=== PATIENT | male | born 1945 | race African-American/Black ===

== ENCOUNTER 2022-12-30 08:47 | Inpatient (IN) | payer OTHER ==
[2022-12-30 09:42] LABS: Absolute Lymphocytes (CBC) 1.5 K/uL (0.7-4.9); Hematocrit 39.9 % (39.6-49.0); Lymphocytes % 10.5 % (15.3-44.8); MCV 88.4 fL (80-100); MPV 8.1 fL (7.6-11.3); RBC Red Blood Cell Count 4.51 M/uL (4.33-5.43)
[2022-12-30 10:00] LABS: Potassium 3.7 mmol/L (3.5-5.1); Troponin High Sensitivity 9.2 pg/mL (<58.9)
--- NOTE | 2022-12-30 10:07 | RAD REPORT ---
EXAM DESCRIPTION: RAD - Chest Single View - 12/30/2022 9:53 am CLINICAL HISTORY: CHEST PAIN COMPARISON: Portable 10/07/2014 TECHNIQUE: AP portable chest image was obtained 12/30/2022 9:53 am . FINDINGS: No focal mass or consolidations seen. Interstitial pattern is prominent. This is not subst antially different from prior imaging and is believed to be baseline interstitial lung disease. Sever ity of chronic pattern could mask minimal interstitial edema or infiltrate. No significant failure or volume overload. Heart and vasculature are normal. No measurable pleural effusion and no pneumothorax. No acute bony abnormality seen. No acute aortic f indings suspected. IMPRESSION: No focal mass or consolidation. Chronic interstitial lung pattern is present and could potentially mask a mild interstitial edema or infiltrate.
[2022-12-30 10:30] LABS: Protime INR 1.17
[2022-12-30] MEDS ORDERED: NA CHLORIDE 0.9% 1,000 ML ONE (11:08)
[2022-12-30] MEDS ORDERED: NA CHLORIDE 0.9% 250 ML ONE (11:08)
[2022-12-30] MEDS ORDERED: CEFTRIAXONE 1000 MG/VIAL ONE (11:08)
[2022-12-30] MEDS ORDERED: AZITHROMYCIN 500 MG INJ IVPB ONE (11:08)
--- NOTE | 2022-12-30 11:26 | ER ---
Nurse's Notes [facility] Name: Jaison Yousif Age: 77 yrs Sex: Male : 1945 Arrival Date: 12/30/2022 Time: 08:49 Bed 19 Private MD: Diagnosis: Pneumonia, unspecified organism Presentation: 12/30 08:49 Chief complaint: EMS states: toned out to [place] for SOB and CP. Upon arrival to ld1 [place] pt was 72% 2L NC. Upon arrival to ER pt was placed on nasal cannula and 98% on 2L NC . Coronavirus screen: At this time, the client does not indicate any symptoms associated with coronavirus-19. Ebola Screen: No symptoms or risks identified at this time. Initial Sepsis Screen: Does the patient meet any 2 criteria? No. Patient's initial sepsis screen is negative. Does the patient have a suspected source of infection? No. Patient's initial sepsis screen is negative. Risk Assessment: Do you want to hurt yourself or someone else? Patient reports no desire to harm self or others. Onset of symptoms was December 30, 2022. 08:49 Method Of Arrival: EMS: [facility] ld1 08:49 Acuity: LIBIA 3 ld1 Triage Assessment: 08:53 General: Appears in no apparent distress. comfortable, Behavior is calm, cooperative, ld1 appropriate for age. Pain: Complains of pain in chest Pain does not radiate. Pain currently is 7 out of 10 on a pain scale. EENT: No signs and/or symptoms were reported regarding the EENT system. Neuro: Level of Consciousness is awake, alert, obeys commands, Oriented to person, place, time, situation. Cardiovascular: Capillary refill < 3 seconds Patient's skin is warm and dry. Rhythm is sinus rhythm. Respiratory: Reports shortness of breath at rest Airway is patent Respiratory effort is even, unlabored, Onset: The symptoms/episode began/occurred suddenly, the patient has mild shortness of breath. GI: Abdomen is flat, non-distended. : No signs and/or symptoms were reported regarding the genitourinary system. Derm: No signs and/or symptoms reported regarding the dermatologic system. Musculoskeletal: No signs and/or symptoms reported regarding the musculoskeletal system. Historical: - Allergies: 08:53 No Known Allergies; ld1 - PMHx: 08:53 CVA; Hypertensive disorder; Dementia; ld1 - Immunization history:: Adult Immunizations up to date, Client reports receiving the 2nd dose of the Covid vaccine. - Social history:: Smoking status: Patient denies any tobacco usage or history of. Patient/guardian denies using alcohol. Screenin:55 [facility] ED Fall Risk Assessment (Adult) History of falling in the last 3 months, ld1 including since admission No falls in past 3 months (0 pts). Abuse screen: Denies threats or abuse. Denies injuries from another. Nutritional screening: No deficits noted. Tuberculosis screening: No symptoms or risk factors identified. Assessment: 08:55 Reassessment: See triage assessment. Cardiovascular: Capillary refill < 3 seconds ld1 Patient's skin is warm and dry. Rhythm is sinus rhythm. Respiratory: Airway is patent Respiratory effort is even, unlabored, Breath sounds are clear bilaterally. 10:30 Reassessment: Patient appears in no apparent distress at this time. No changes from ld1 previously documented assessment. Patient and/or family updated on plan of care and expected duration. Pain level reassessed. 11:45 Reassessment: Patient appears in no apparent distress at this time. Patient and/or ld1 family updated on plan of care and expected duration. Pain level reassessed. Patient is alert, oriented x 3, equal unlabored respirations, skin warm/dry/pink. Patient denies pain at this time. 12:15 Reassessment: Patient appears in no apparent distress at this time. Patient and/or ld1 family updated on plan of care and expected duration. Pain level reassessed. 13:45 Reassessment: Patient appears in no apparent distress at this time. Patient and/or ld1 family updated on plan of care and expected duration. Pain level reassessed. Patient is alert, oriented x 3, equal unlabored respirations, skin warm/dry/pink. 15:33 Reassessment: Patient appears in no apparent distress at this time. Patient and/or ld1 family updated on plan of care and expected duration. Pain level reassessed. Patient is alert, oriented x 3, equal unlabored respirations, skin warm/dry/pink. Vital Signs: 08:49 BP 121 / 66; Pulse 85; Resp 14; Temp 98.2(O); Pulse Ox 98% on 2 lpm NC; Weight 40.82 ld1 kg; Height 5 ft. 5 in. (165.10 cm); 09:42 BP 104 / 53; Pulse 75; Resp 11; Pulse Ox 99% on R/A; ld1 11:18 BP 104 / 53; Pulse 85; Resp 14; Pulse Ox 97% on R/A; ld1 12:01 BP 104 / 59; Pulse 87; Resp 12; Pulse Ox 98% on R/A; ld1 13:30 BP 109 / 58; Pulse 76; Resp 17; Pulse Ox 98% on R/A; ld1 15:00 BP 117 / 65; Pulse 85; Resp 15; Pulse Ox 99% on R/A; ld1 15:34 BP 115 / 66; Pulse 75; Resp 14; Pulse Ox 99% on R/A; ld1 08:49 Body Mass Index 14.98 (40.82 kg, 165.10 cm) ld1 ED Course: 08:49 Patient arrived in ED. ld1 08:53 Triage completed. ld1 08:53 Arm band placed on right wrist. EKG completed in triage. Results shown to MD. ld1 08:55 Patient has correct armband on for positive identification. Placed in gown. Bed in low ld1 position. Call light in reach. Side rails up X2. basting cleaner on. Pulse ox on. NIBP on. Door closed. Noise minimized. Warm blanket given. 08:55 No provider procedures requiring assistance completed. ld1 08:57 Client placed on continuous cardiac and pulse oximetry monitoring. NIBP monitoring mm9 applied. 08:58 Courtney Farrell FNP is [facility]. jh7 08:58 Martinez Askew MD is Attending Physician. jh7 08:58 EKG done, by ED staff, reviewed by Martinez Askew MD. mm9 09:42 Ella Nunez, JUSTIN is Primary Nurse. ld1 09:55 XRAY Chest (1 view) In Process Unspecified. EDMS 11:06 CT Chest For PE Angio In Process Unspecified. EDMS 11:25 Jaison Payne MD is Hospitalizing Provider. jh7 11:57 Cassidy Buckley MD is Hospitalizing Provider. jh7 11:58 Blood Culture Adult (2) Sent. ld1 15:34 Cleaned of incontinence. Linen changed. ld1 16:26 Patient admitted, IV remains in place. ld1 Administered Medications: 11:51 Drug: Rocephin (cefTRIAXone) 1 grams Route: IV; Rate: 1 calculated rate; Site: left ld1 antecubital; 11:58 Drug: AZITHromycin 500 mg Route: IVPB; Infused Over: 1 hrs; Site: left antecubital; ld1 11:58 Drug: NS 0.9% 1000 ml Route: IV; Rate: 125 ml/hr; Site: left antecubital; ld1 Medication: 08:55 VIS not applicable for this client. ld1 Outcome: 11:25 Decision to Hospitalize by Provider. 7 16:26 Admitted to Med/surg accompanied by tech, via wheelchair, room 415, with chart, Report ld1 called to Rashmi Srinivasan Rn 16:26 Condition: stable 16:26 Instructed on the need for admit. 16:26 Patient left the ED. ld1 Signatures: Dispatcher [employer] Ella Peralta RN RN ld1 Courtney Farrell FNP HYDROGEN OPERATOR [facility] Leonie Boo [facility]
--- NOTE | 2022-12-30 11:26 | EDPHYS ---
Physician Documentation [facility] Name: Jaison Yousif Age: 77 yrs Sex: Male : 1945 Arrival Date: 12/30/2022 Time: 08:49 Bed 19 Private MD: ED Physician Martinez Askew HPI: 12/30 08:50 This 77 yrs old Black Male presents to ER via EMS with complaints of Shortness Of jh7 Breath, Chest Pain. 08:50 The patient has shortness of breath that occurred at a assisted or assisted living [facility] facility. Onset: The symptoms/episode began/occurred this morning. Associated signs and symptoms: Pertinent positives: chest pain, Pertinent negatives: non-productive cough, productive cough, dizziness, fever, loss of consciousness, nausea, visual changes, vomiting. Patient was at the assisted eating breakfast and nursing staff reports that the patient was 74% on 2 L nasal cannula. Staff reports that the patient was complaining of shortness of breath and chest pain but due to a history of dementia and a previous CVA, the patient is only able to answer yes or no questions. Patient 98% oxygen saturation on 2 L nasal cannula in the ER.. Historical: - Allergies: 08:53 No Known Allergies; ld1 - PMHx: 08:53 CVA; Hypertensive disorder; Dementia; ld1 - Immunization history:: Adult Immunizations up to date, Client reports receiving the 2nd dose of the Covid vaccine. - Social history:: Smoking status: Patient denies any tobacco usage or history of. Patient/guardian denies using alcohol. ROS: 08:50 Constitutional: Negative for fever, chills, and weight loss, Eyes: Negative for injury, jh7 pain, redness, and discharge, ENT: Negative for injury, pain, and discharge, Neck: Negative for injury, pain, and swelling, Abdomen/GI: Negative for abdominal pain, nausea, vomiting, diarrhea, and constipation, Back: Negative for injury and pain, Skin: Negative for injury, rash, and discoloration, Neuro: Negative for headache, weakness, numbness, tingling, and seizure. 08:50 Cardiovascular: Positive for chest pain. 08:50 Respiratory: Positive for shortness of breath, Negative for cough, wheezing. 08:50 All other systems are negative. Exam: 08:50 Constitutional: This is a well developed, well nourished patient who is awake, alert, jh7 and in no acute distress. Head/Face: Normocephalic, atraumatic. Eyes: Pupils equal round and reactive to light, extra-ocular motions intact. Lids and lashes normal. Conjunctiva and sclera are non-icteric and not injected. Cornea within normal limits. Periorbital areas with no swelling, redness, or edema. ENT: Nares patent. No nasal discharge, no septal abnormalities noted. Oropharynx with no redness, swelling, or masses, exudates, or evidence of obstruction, uvula midline. Mucous membranes moist. Cardiovascular: Regular rate and rhythm with a normal S1 and S2. No gallops, murmurs, or rubs. Normal PMI, no JVD. No pulse deficits. Respiratory: Lungs have equal breath sounds bilaterally, clear to auscultation and percussion. No rales, rhonchi or wheezes noted. No increased work of breathing, no retractions or nasal flaring. Abdomen/GI: Soft, non-tender, with normal bowel sounds. No distension or tympany. No guarding or rebound. No evidence of tenderness throughout. Back: No spinal tenderness. No costovertebral tenderness. Full range of motion. Skin: Warm, dry with normal turgor. Normal color with no rashes, no lesions, and no evidence of cellulitis. 08:50 ECG was reviewed by the Attending Physician. 08:50 Neuro: Orientation: Only answering yes or no questions secondary to prior CVA. Mental status at baseline., Mentation: no acute changes, per EMS, Memory: no acute changes, Motor: no acute changes, the patient is contracted. Vital Signs: 08:49 BP 121 / 66; Pulse 85; Resp 14; Temp 98.2(O); Pulse Ox 98% on 2 lpm NC; Weight 40.82 ld1 kg; Height 5 ft. 5 in. (165.10 cm); 09:42 BP 104 / 53; Pulse 75; Resp 11; Pulse Ox 99% on R/A; ld1 11:18 BP 104 / 53; Pulse 85; Resp 14; Pulse Ox 97% on R/A; ld1 12:01 BP 104 / 59; Pulse 87; Resp 12; Pulse Ox 98% on R/A; ld1 13:30 BP 109 / 58; Pulse 76; Resp 17; Pulse Ox 98% on R/A; ld1 15:00 BP 117 / 65; Pulse 85; Resp 15; Pulse Ox 99% on R/A; ld1 15:34 BP 115 / 66; Pulse 75; Resp 14; Pulse Ox 99% on R/A; ld1 08:49 Body Mass Index 14.98 (40.82 kg, 165.10 cm) 1 MDM: 08:58 Patient medically screened. [facility] 11:50 Differential diagnosis: Bronchitis CHF exacerbation, Chronic Obstructive Pulmonary 7 Disease Myocardial Infarction pneumonia, pulmonary edema, Pulmonary Embolism. Antibiotic administration: Rocephin and Zithromax given. Data interpreted: laboratory monitor: Interpretation: normal rate, normal rhythm, Pulse oximetry: on 2L(s) per nasal canula, is 98 %. Data reviewed: vital signs, nurses notes, lab test result(s), EKG, radiologic studies, CT scan, plain films. Consideration of Admission/Observation Patient was admitted/placed on observation. Management of patient was discussed with the following: Hospitalist: Dr. Nesbitt and Dr. Buckley. I considered the following discharge prescriptions or medication management in the emergency department Medications were administered in the Emergency Department. See MAR. Independent interpretation of the following test(s) in the Emergency Department EKG: See my EKG interpretation above. Historians other than the Patient: EMS: . Daughter/Son: daughter. Care significantly affected by the following chronic conditions: dementia, CVA. Counseling: I had a detailed discussion with the patient and/or guardian regarding: the historical points, exam findings, and any diagnostic results supporting the discharge/admit diagnosis, the need for further work-up and treatment in the hospital. 12/30 08:56 Order name: Basic Metabolic Panel; Complete Time: 10:01 12/30 08:56 Order name: CBC with Diff; Complete Time: 09:51 [facility] 12/30 08:56 Order name: Troponin HS; Complete Time: 10:01 12/30 10:03 Order name: PT-INR; Complete Time: 10:34 [facility] 12/30 10:03 Order name: PROBNP; Complete Time: 10:46 [facility] 12/30 10:09 Order name: Lactate w/ 2H reflex if indic.; Complete Time: 10:53 [facility] 12/30 10:55 Order name: Blood Culture Adult (2) 7 12/30 10:57 Order name: SARS RAPID; Complete Time: 11:44 7 12/30 15:05 Order name: CBC with Automated Diff EDMS 12/30 15:05 Order name: CBC with Automated Diff EDMS 12/30 15:05 Order name: Comprehensive Metabolic Panel EDMS 12/30 15:05 Order name: Comprehensive Metabolic Panel EDMS 12/30 15:05 Order name: Lactate w/ 2H reflex if indic. EDMS 12/30 15:05 Order name: Lactate w/ 2H reflex if indic. EDMS 12/30 08:56 Order name: XRAY Chest (1 view); Complete Time: 10:08 ld1 12/30 08:56 Order name: EKG; Complete Time: 08:57 1 12/30 10:09 Order name: CT Chest For PE Angio; Complete Time: 11:40 [facility] 12/30 15:05 Order name: Heart Healthy EDMS 12/30 15:05 Order name: Lipid Profile EDMS 12/30 15:05 Order name: Lipid Profile EDMS 12/30 15:05 Order name: Magnesium EDMS 12/30 15:05 Order name: Magnesium EDMS 12/30 15:05 Order name: NT PRO-BNP EDMS 12/30 15:05 Order name: NT PRO-BNP EDMS 12/30 15:05 Order name: Procalcitonin EDMS 12/30 15:05 Order name: Procalcitonin EDMS 12/30 15:26 Order name: Lactate Sepsis 2 HR Follow-up; Complete Time: 16:46 EDMS 12/30 08:56 Order name: Cardiac monitoring; Complete Time: 08:56 1 12/30 08:56 Order name: EKG - Nurse/Tech; Complete Time: 08:56 ld1 12/30 08:56 Order name: IV Saline Lock; Complete Time: 09:33 ld1 12/30 08:56 Order name: Labs collected and sent; Complete Time: 09:33 ld1 12/30 08:56 Order name: O2 Per Protocol; Complete Time: 08:56 ld1 12/30 08:56 Order name: O2 Sat Monitoring; Complete Time: 08:56 ld1 EC:50 Rate is 79 beats/min. Rhythm is regular. Left axis deviation noted. FL interval is jh7 normal at 180 msec. QRS interval is normal at 92 msec. QT interval is normal at 390 msec. No Q waves. T waves are Normal. No ST changes noted. Clinical impression: Normal ECG and Normal sinus rhythm with left axis deviation. Administered Medications: 11:51 Drug: Rocephin (cefTRIAXone) 1 grams Route: IV; Rate: 1 calculated rate; Site: left ld1 antecubital; 11:58 Drug: AZITHromycin 500 mg Route: IVPB; Infused Over: 1 hrs; Site: left antecubital; ld1 11:58 Drug: NS 0.9% 1000 ml Route: IV; Rate: 125 ml/hr; Site: left antecubital; ld1 Disposition: 17:17 Co-signature as Attending Physician, Martinez Askew MD I agree with the assessment and kdr plan of care. Disposition Summary: 12/30/22 11:25 Hospitalization Ordered Hospitalization Status: Inpatient Admission [facility] Location: Telemetry/MedSurg (Inpatient) [facility] Condition: Stable [facility] Problem: new [facility] Symptoms: are unchanged [facility] Bed/Room Type: Standard [facility] Provider: Cassidy Buckley(12/30/22 11:57) [facility] Room Assignment: [facility](12/30/22 15:39) kj Diagnosis - Pneumonia, unspecified organism [facility] Forms: - Medication Reconciliation Form [facility] - SBAR form [facility] Signatures: Dispatcher [employer] EDMartinez Bryan MD MD [facility] Bisi Brown kj1 Ella Nunez, JUSTIN RN ld1 Courtney Farrell, COMPLIANCE TECHNICIAN COMPLIANCE TECHNICIAN [facility] Corrections: (The following items were deleted from the chart) 11:57 11:25 Jaison Payne [place] [id number] 15:39 11:25 [facility] kj1
--- NOTE | 2022-12-30 11:31 | RAD REPORT ---
EXAM DESCRIPTION: CT - Chest For Pe Angio - 12/30/2022 11:04 am CLINICAL HISTORY: r/o PE , chest pain, shortness of breath COMPARISON: Chest Single View dated 12/30/2022 TECHNIQUE: Dynamically enhanced 3 mm thick images of the chest were obtained during administration o f approximately 150mL Isovue 370 IV contrast. Coronal and oblique MIP reconstruction images were gene rated and reviewed. Exam utilizes a protocol to evaluate the pulmonary arterial tree. Patient was susana ged in a left lateral decubitus position due to contraction. All CT scans are performed using dose optimization technique as appropriate and may include automated exposure control or mA/KV adjustment according to patient size. FINDINGS: No pulmonary emboli are identified. The aorta as imaged shows no acute or suspicious finding. No pericardial thickening or effusion. Numerous bullae and blebs scattered in the lung parenchyma many of which are subpleural in location. Interstitial scarring changes are present. Patchy areas of ground-glass opacification are present in the left lung base involving left lower lobe and lingula. No dense airspace consolidation. An 8 es meter juxtapleural nodule is present at the right base. Mild bronchial wall thickening changes are pr esent involving both lung ken. No mediastinal or hilar suspicious masses. No chest wall masses or abnormal axillary lymphadenopathy. Esophagus is dilated. There is liquid or liquid gastric content in the distal esophagus. A minimal hi atal hernia is also present. IMPRESSION: No pulmonary emboli identified. Pleural and parenchymal scarring changes are present as detailed. Patient has superimposed bronchial wall thickening and some patchy airspace opacities in the lower left lung field that could be part of superimposed infiltrate. Mildly dilated esophagus with small hiatal hernia. Mass lesion is not identified at the GE junction.F luid within the esophageal lumen could be ingested fluid or refluxed gastric content.
[2022-12-30 11:42] LABS: SARS-CoV-2 Antigen Rapid Res Negative (Negative)
[2022-12-30] MEDS ORDERED: ACETAMINOPHEN 500 MG TAB PO PRN (14:55)
[2022-12-30] MEDS ORDERED: ONDANSETRON 4 MG/2 ML VIAL IV PRN (14:55)
[2022-12-30] MEDS ORDERED: NA CHLORIDE 0.9% 1,000 ML IV SCH (15:00)
[2022-12-30] MEDS: Levofloxacin 750mg IV 750 MG/150 ML BAG IV SCH (17:10)
[2022-12-30 17:45] LABS: Urine Blood Negative (Negative); Urine Glucose 3+ (Negative); Urine Protein Negative (Negative)
--- NOTE | 2022-12-30 18:39 | P.HP ---
Certification for Inpatient Patient admitted to: Observation With expected LOS: <2 Midnights Patient will require the following post-hospital care: None Practitioner: I am a practitioner with admitting privileges, knowledge of patient current condition, hospital course, and medical plan of care. Services: Services provided to patient in accordance with Admission requirements found in Title 42 Section 412.3 of the Code of Federal Regulations Patient History Date of Service: 12/30/22 Reason for admission: Respiratory distress History of Present Illness: Patient is a 77-year-old gentleman who came to the hospital from [facility] with shortness of breath. Patient was with cough and congestion. Patient was short of breath and patient was hypoxic satting 70% on room air. Patient was sent to the emergency room for further evaluation. Patient was started on nonrebreather in the emergency room. They are able to wean patient down to room air and current saturations are 97%. Patient will be admitted for observation. Patient has been losing some weight. We will continue with pured diet. Patient does not need to eat anything unless it is pured and unless he has his dentures in place. Allergies No Known Allergies Allergy (Unverified 04/19/12 16:34) Home Medications: Aspirin [Aspirin EC 81 MG] 1 tab PO DAILY 04/20/12 Clopidogrel Bisulfate [Plavix] 1 tab PO DAILY 04/20/12 Omeprazole Magnesium [Prilosec Otc] 20 mg PO DAILY 04/20/12 Atorvastatin Calcium 80 mg PO DAILY 04/30/12 Lisinopril/Hydrochlorothiazide [Lisinopril-Hctz 20-12.5 mg Tab] 1 each PO DAILY 04/30/12 Pantoprazole [Protonix Tab*] 40 mg PO DAILYAC #0 tab 05/02/12 - Past Medical/Surgical History Has patient received pneumonia vaccine in the past: Yes Diabetic: No -: History of CVA Past Surgical History: Unable to obtain - Family History Father Family History: Reviewed- Non-Contributory - Social History Smoking Status: Former smoker Alcohol use: No CD- Drugs: No Caffeine use: No Place of Residence: [facility] Review of Systems 10-point ROS is otherwise unremarkable Physical Examination - Vital Signs Temperature: 97.5 F Blood Pressure: 119/59 Pulse: 71 Respirations: 14 Pulse Ox (%): 98 - Physical Exam General: Alert, In no apparent distress, Demented HEENT: Atraumatic, PERRLA, Mucous membr. moist/pink, EOMI, Sclerae nonicteric Neck: Supple, 2+ carotid pulse no bruit, No LAD, Without JVD or thyroid abnormality Respiratory: Diminished, Expiratory wheezes Cardiovascular: Regular rate/rhythm, Normal S1 S2, No murmurs Gastrointestinal: Normal bowel sounds, Soft and benign, Non-distended, No tenderness Musculoskeletal: No clubbing, No swelling, No tenderness Integumentary: No rashes Neurological: Normal gait, Normal speech, Normal strength at 5/5 x4 extr, Normal tone, Sensation intact, Cranial nerves 3-12 intact, Normal affect Lymphatics: No axilla or inguinal lymphadenopathy - Studies Laboratory Data (last 24 hrs) 12/30/22 10:14: PT 12.9 H, INR 1.17 12/30/22 09:31: WBC 14.40 H, Hgb 13.3 L, Hct 39.9, Plt Count 246 12/30/22 09:31: Sodium 132 L, Potassium 3.7, BUN 9, Creatinine 0.57 L, Glucose 136 H Assessment & Plan - Problems (Diagnosis) (1) Hypoxemia Current Visit: Yes Status: Acute (2) Generalized weakness Current Visit: Yes Status: Acute (3) Weight loss Current Visit: Yes Status: Acute (4) History of CVA (cerebrovascular accident) Current Visit: Yes Status: Acute (5) Hypertension Current Visit: Yes Status: Acute - Plan Plan: 1. O2 per protocol 2. Nebs as needed 3. Monitor swallowing 4. Check procalcitonin level for pneumonia-bacterial 5. Physical therapy evaluation 6. Out of bed and ambulate 7. GI and DVT prophylaxis Discharge Plan: Home Plan to discharge in: Greater than 2 days - Advance Directives Does patient have a Living Will: No Does patient have a Durable POA for Healthcare: Yes - Code Status/Comfort Care Code Status Assessed: Yes Code Status: Full Code Critical Care: No Time Spent Managing PTS Care (In Minutes): 45
[2022-12-30] MEDS ORDERED: HALOPERIDOL LACT 5 MG/ML INJ IV PRN (19:00)
[2022-12-30] MEDS: IPRATROPIUM BROM 0.5MG/2.5ML NEB SCH (20:00)
[2022-12-30] MEDS: ALBUTEROL 2.5 MG/3 ML NEB SOL NEB SCH (20:00)
[2022-12-31] MEDS: IPRATROPIUM BROM 0.5MG/2.5ML NEB SCH ×5 (02:05→20:00)
[2022-12-31] MEDS: ALBUTEROL 2.5 MG/3 ML NEB SOL NEB SCH ×5 (02:05→20:00)
[2022-12-31 03:56] LABS: Absolute Lymphocytes (CBC) 2.2 K/uL (0.7-4.9); Hematocrit 33.1 % (39.6-49.0); Lymphocytes % 25.6 % (15.3-44.8); MCV 87.5 fL (80-100); MPV 8.3 fL (7.6-11.3); RBC Red Blood Cell Count 3.78 M/uL (4.33-5.43)
[2022-12-31 04:19] LABS: AST/SGOT 11 U/L (15-37); Albumin 2.9 g/dL (3.4-5.0); Alkaline Phosphatase 70 U/L (45-117); BUN Blood Urea Nitrogen 7 mg/dL (7-18); Bicarbonate 28 mmol/L (21-32); Bilirubin Total 0.8 mg/dL (0.2-1.0); Glomerular Filtration Rate 112 ml/min (=/>90); Glucose Level 94 mg/dL (74-106); HDL Cholesterol 31 mg/dL (40-60); LDL Cholesterol, Calculated 90 mg/dL (<130); NT PRO-BNP 17 pg/mL (<450); Phosphorus 3.5 mg/dL (2.5-4.9); Potassium 3.5 mmol/L (3.5-5.1); Protein, Total 6.5 g/dL (6.4-8.2); Sodium Level 134 mmol/L (136-145)
[2022-12-31 04:37] LABS: ALT/SGPT < 10 U/L (16-61)
[2022-12-31] MEDS: PANTOPRAZOLE 40MG TABLET PO SCH ×2 (06:03→06:09)
[2022-12-31] MEDS: CLOPIDOGREL 75 MG TABLET PO SCH ×2 (09:00→09:58)
[2022-12-31] MEDS: ASPIRIN EC 81 MG TAB PO SCH ×2 (09:00→09:58)
[2022-12-31] MEDS: ENOXAPARIN 30 MG/0.3 ML SQ SCH ×2 (09:00→09:58)
[2022-12-31] MEDS ORDERED: POTASSIUM CL SA 10 MEQ TAB PO ONE (09:00)
[2022-12-31] MEDS: ATORVASTATIN 80 MG TAB PO SCH ×2 (09:00→09:58)
[2022-12-31] MEDS: Levofloxacin 750mg IV 750 MG/150 ML BAG IV SCH (15:45)
--- NOTE | 2022-12-31 16:09 | P.DS ---
Discharge Date: 12/31/22 Disposition: ROUTINE DISCHARGE Discharge Condition: GOOD Reason for Admission: Respiratory distress - Problems (1) Hypoxemia Current Visit: Yes Status: Acute (2) Generalized weakness Current Visit: Yes Status: Acute (3) Weight loss Current Visit: Yes Status: Acute (4) History of CVA (cerebrovascular accident) Current Visit: Yes Status: Acute (5) Hypertension Current Visit: Yes Status: Acute Brief History of Present Illness: Patient is a 77-year-old gentleman who came to the hospital from [facility] with shortness of breath. Patient was with cough and congestion. Patient was short of breath and patient was hypoxic satting 70% on room air. Patient was sent to the emergency room for further evaluation. Patient was started on nonrebreather in the emergency room. They are able to wean patient down to room air and current saturations are 97%. Patient will be admitted for observation. Patient has been losing some weight. We will continue with pured diet. Patient does not need to eat anything unless it is pured and unless he has his dentures in place. Hospital Course: Continue with current plan of care. Patient tolerating diet. Anticipate discharge with outpatient follow-up. Recommend pured diet at discharge. Vital Signs/Physical Exam: Temp Pulse Resp BP Pulse Ox 97.5 F 71 14 119/59 L 98 12/31/22 16:05 12/31/22 16:05 12/31/22 16:05 12/31/22 16:05 12/31/22 16:05 General: Alert, In no apparent distress, Oriented x3 Laboratory Data at Discharge: WBC 8.50 K/uL (4.3-10.9) 12/31/22 03:42 Hgb 11.3 g/dL (13.6-17.9) L D 12/31/22 03:42 Hct 33.1 % (39.6-49.0) L 12/31/22 03:42 Plt Count 213 K/uL (152-406) 12/31/22 03:42 PT 12.9 SECONDS (9.5-12.5) H 12/30/22 10:14 INR 1.17 12/30/22 10:14 Sodium 134 mmol/L (136-145) L 12/31/22 03:42 Potassium 3.5 mmol/L (3.5-5.1) 12/31/22 03:42 BUN 7 mg/dL (7-18) 12/31/22 03:42 Creatinine 0.40 mg/dL (0.70-1.30) L 12/31/22 03:42 Glucose 94 mg/dL (74-106) 12/31/22 03:42 Phosphorus Cancelled 12/31/22 05:00 Magnesium 2.0 mg/dL (1.6-2.4) 12/31/22 03:42 Total Bilirubin 0.8 mg/dL (0.2-1.0) 12/31/22 03:42 AST 11 U/L (15-37) L 12/31/22 03:42 ALT < 10 U/L (16-61) L 12/31/22 03:42 Alkaline Phosphatase 70 U/L (45-117) 12/31/22 03:42 Triglycerides 48 mg/dL (<150) 12/31/22 03:42 Cholesterol 131 mg/dL (<200) 12/31/22 03:42 HDL Cholesterol 31 mg/dL (40-60) L 12/31/22 03:42 Cholesterol/HDL Ratio 4.23 12/31/22 03:42 Home Medications: Aspirin [Aspirin EC 81 MG] 1 tab PO DAILY 04/20/12 Clopidogrel Bisulfate [Plavix] 1 tab PO DAILY 04/20/12 Omeprazole Magnesium [Prilosec Otc] 20 mg PO DAILY 04/20/12 Atorvastatin Calcium 80 mg PO DAILY 04/30/12 Lisinopril/Hydrochlorothiazide [Lisinopril-Hctz 20-12.5 mg Tab] 1 each PO DAILY 04/30/12 Pantoprazole [Protonix Tab*] 40 mg PO DAILYAC #0 tab 05/02/12 levoFLOXacin [Levaquin] 500 mg PO DAILY #7 tab 12/31/22 predniSONE [Deltasone] 20 mg PO BID #11 tab 12/31/22 New Medications: levoFLOXacin [Levaquin] 500 mg PO DAILY #7 tab predniSONE [Deltasone] 20 mg PO BID #11 tab Physician Discharge Instructions: -DC IV and DC home -Follow-up with PCP in 1 to 2 weeks -Follow-up with pulmonary in 1 to 2 weeks -Please call Dr. Buckley at [phone] if any questions regarding hospital stay -Please call nursing station at [phone] if any nursing or medication questions -Return to the emergency room if symptoms worsen Recommend pured diet unless patient has his dentures available. Would feed with assistance and get speech therapy to evaluate the patient and assist with strengthening his swallowing muscles. We will also encourage Ensure high- protein with his meals Diet: AHA Activity: Fall precautions Followup: NONE,NONE [Primary Care Provider] - Time spent managing pt's care (in minutes): 35
[2022-12-31 19:36] VITALS: BMI 14.8
[2023-01-01] MEDS: ALBUTEROL 2.5 MG/3 ML NEB SOL NEB SCH ×2 (02:10→08:31)
[2023-01-01] MEDS: IPRATROPIUM BROM 0.5MG/2.5ML NEB SCH ×2 (02:10→08:31)
--- NOTE | 2023-01-01 02:56 | P.PN ---
Subjective Date of Service: 12/31/22 Subjective: No new changes, No C/O voiced, Improving Review of Systems 10-point ROS is otherwise unremarkable Physical Examination - Vital Signs Temperature: 98.8 F Blood Pressure: 134/63 Pulse: 93 Respirations: 18 Pulse Ox (%): 96 - Physical Exam General: Alert, In no apparent distress HEENT: Atraumatic, PERRLA, EOMI Neck: Supple, JVD not distended Respiratory: Clear to auscultation bilaterally, Normal air movement Cardiovascular: Regular rate/rhythm, Normal S1 S2 Gastrointestinal: Normal bowel sounds, No tenderness Musculoskeletal: No tenderness Integumentary: No rashes Neurological: Normal speech, Normal tone, Normal affect Lymphatics: No axilla or inguinal lymphadenopathy - Studies Medications List Reviewed: Yes Assessment & Plan - Problems (Diagnosis) (1) Hypoxemia Current Visit: Yes Status: Acute (2) Generalized weakness Current Visit: Yes Status: Acute (3) Weight loss Current Visit: Yes Status: Acute (4) History of CVA (cerebrovascular accident) Current Visit: Yes Status: Acute (5) Hypertension Current Visit: Yes Status: Acute - Plan Plan: 1. O2 per protocol 2. Nebs as needed 3. Monitor swallowing 4. Check procalcitonin level for pneumonia-bacterial 5. Physical therapy evaluation 6. Out of bed and ambulate 7. GI and DVT prophylaxis - Advance Directives Does patient have a Living Will: No Does patient have a Durable POA for Healthcare: Yes - Code Status/Comfort Care Code Status: Full Code
[2023-01-01] MEDS: PANTOPRAZOLE 40MG TABLET PO SCH (05:46)
[2023-01-01 06:13] LABS: Potassium 3.4 mmol/L (3.5-5.1)
[2023-01-01] MEDS ORDERED: POTASSIUM CL SA 10 MEQ TAB PO ONE (08:00)
[2023-01-01] MEDS: ENOXAPARIN 30 MG/0.3 ML SQ SCH (09:00)
[2023-01-01] MEDS: ASPIRIN EC 81 MG TAB PO SCH (09:01)
[2023-01-01] MEDS: CLOPIDOGREL 75 MG TABLET PO SCH (09:01)
[2023-01-01] MEDS: ATORVASTATIN 80 MG TAB PO SCH (09:01)
[2023-01-01 09:30] VITALS: O2SAT 100
--- NOTE | 2023-01-08 17:40 | EKG ---
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
[2023-01-24 23:04] VITALS: BP 134/63; TEMP 98.8
== END 2023-01-01 10:55 | DRG 194 ==
LOC: ER 08:47 → ERHOLD 14:59 → 4TH 16:13
PROVIDERS: ADMIT Hospitalist; ATTEND Hospitalist
DX: J15.9 Unspecified bacterial pneumonia (principal); Z68.1 Body mass index [BMI] 19.9 or less, adult; I10 Essential (primary) hypertension; I69.398 Other sequelae of cerebral infarction; F03.90 Unspecified dementia, unspecified severity, without behavioral disturbance, psychotic disturbance, mood disturbance, and anxiety; R63.4 Abnormal weight loss; Z79.82 Long term (current) use of aspirin; Z79.52 Long term (current) use of systemic steroids; Z79.02 Long term (current) use of antithrombotics/antiplatelets; Z79.899 Other long term (current) drug therapy; Z87.891 Personal history of nicotine dependence; Z20.822 Contact with and (suspected) exposure to COVID-19
CPT/HCPCS: 36415; 71045; 71275; 80048; 80053; 80061; 81003; 83605; 83735; 83880; 84100; 84145; 84484; 85025; 85610; 87040; 87811; 92610; 93005; 94640; 94760; 96374; 96375; 99285; J0456; J1650; J7030; J7050; J7613; J7644; Q9967

== ENCOUNTER 2024-02-15 08:20 | Observation (INO) | payer OTHER ==
[2024-02-15] MEDS ORDERED: PANTOPRAZOLE 40 MG INJ ONE ×2 (08:34→09:56)
[2024-02-15] MEDS ORDERED: ONDANSETRON 4 MG/2 ML VIAL ONE (08:34)
[2024-02-15] MEDS ORDERED: NA CHLORIDE 0.9% 1,000 ML ONE (08:43)
--- NOTE | 2024-02-15 08:50 | RAD REPORT ---
EXAM DESCRIPTION: RAD - Chest Single View - 02/15/2024 8:41 am CLINICAL HISTORY: COUGH COMPARISON: Chest Single View dated 12/30/2022; CHEST SINGLE VIEW dated 09/27/2014; CHEST SINGLE VIEW d ated 04/29/2012; CHEST SINGLE VIEW dated 04/21/2012; Chest For Pe Angio dated 12/30/2022 FINDINGS: Lines: None. Lungs: No evidence of edema or pneumonia. Chronic interstitial thickening. Pleural: No significant pleural effusions or pneumothorax. Cardiac: The heart size is within normal limits. Mediastinum: Within normal limits. Bones: No acute fractures. Other: None IMPRESSION: No acute cardiopulmonary disease.
[2024-02-15 09:20] LABS: Absolute Lymphocytes (CBC) 1.3 K/uL (0.7-4.9); Absolute Monocytes 1.5 K/uL (0.1-1.3); Absolute Neutrophil 11.1 K/uL (1.8-8.0); Basophils % 0.1 % (0-1.3); Hematocrit 28.1 % (39.6-49.0); Hemoglobin 9.1 g/dL (13.6-17.9); Lymphocytes % 9.3 % (15.3-44.8); MCHC 32.4 g/dL (32.0-36.0); MCV 80.3 fL (80-100); MPV 7.5 fL (7.6-11.3); Monocytes % 11.1 % (3.3-12.3); Neutrophils % 79.5 % (41.7-73.7); Platelets 382 thou/uL (152-406); Red Cell Distribution Width 15.4 % (12.1-15.2)
[2024-02-15 09:25] LABS: PT Prothrombin Time 14.3 SECONDS (9.5-12.5); Protime INR 1.31
[2024-02-15 09:40] LABS: Albumin 2.4 g/dL (3.4-5.0); Albumin/Globulin Ratio 0.6 (1.1-1.8); Anion Gap 8.4 mEq/L (5.0-15.0); Bilirubin Direct 0.3 mg/dL (0-0.2); Bilirubin Indirect, Calculated 0.6 mg/dL (0.2-0.8); Bilirubin Total 0.9 mg/dL (0.2-1.0); Globulin 4.2 g/dL (2.3-3.5); Magnesium 1.8 mg/dL (1.6-2.4); Potassium 3.4 mEq/L (3.5-5.1); Protein, Total 6.6 g/dL (6.4-8.2); Troponin High Sensitivity 14.1 pg/mL (<58.9)
--- NOTE | 2024-02-15 09:49 | EDPHYS ---
Physician Documentation [facility] Name: Jaison Yousif Age: 78 yrs Sex: Male : 1945 Arrival Date: 02/15/2024 Time: 08:20 Bed 8 Private MD: ED Physician Dewayne Olivares HPI: 02/14 08:27 This 78 yrs old Black Male presents to ER via EMS with complaints of vomiting, coffee jory grounds, low blood pressure. 08:27 The patient presents with abdominal pain. Onset: The symptoms/episode began/occurred jory just prior to arrival, this morning. The patient presents to the emergency department with nausea, vomiting, that is intermittent, described as coffee ground in nature. Onset: The symptoms/episode began/occurred this morning, today. Possible causes: unknown. The symptoms are aggravated by nothing. The symptoms are alleviated by nothing. The patient presents to the emergency department vomiting blood, a small amount, coffee grounds in nature, in a single episode. Abdominal pain: none is appreciated. Modifying factors: The symptoms are alleviated by nothing, the symptoms are aggravated by nothing. Historical: - Allergies: 08:26 No Known Allergies; ko1 - PMHx: 08:26 CVA; Dementia; Hypertensive disorder; ko1 - PSHx: 08:26 Unable to Obtain; ko1 - Immunization history:: Adult Immunizations unknown. - Social history:: Smoking status: unknown. - Family history:: not pertinent. ROS: 08:27 Constitutional: Negative for fever, chills, and weight loss, Eyes: Negative for injury, jory pain, redness, and discharge, ENT: Negative for injury, pain, and discharge, Neck: Negative for injury, pain, and swelling, Cardiovascular: Negative for chest pain, palpitations, and edema, Respiratory: Negative for shortness of breath, cough, wheezing, and pleuritic chest pain, Back: Negative for injury and pain, : Negative for injury, bleeding, discharge, and swelling, MS/Extremity: Negative for injury and deformity, Skin: Negative for injury, rash, and discoloration, Psych: Negative for depression, anxiety, suicide ideation, homicidal ideation, and hallucinations, Allergy/Immunology: Negative for hives, rash, and allergies, Endocrine: Negative for neck swelling, polydipsia, polyuria, polyphagia, and marked weight changes, Hematologic/Lymphatic: Negative for swollen nodes, abnormal bleeding, and unusual bruising, 08:27 Abdomen/GI: Positive for nausea and vomiting, hematemesis, Exam: 08:27 Constitutional: This is a well developed, well nourished patient who is awake, alert, jory and in no acute distress. Head/Face: Normocephalic, atraumatic. Eyes: Pupils equal round and reactive to light, extra-ocular motions intact. Lids and lashes normal. Conjunctiva and sclera are non-icteric and not injected. Cornea within normal limits. Periorbital areas with no swelling, redness, or edema. ENT: Nares patent. No nasal discharge, no septal abnormalities noted. Tympanic membranes are normal and external auditory canals are clear. Oropharynx with no redness, swelling, or masses, exudates, or evidence of obstruction, uvula midline. Mucous membranes moist. Neck: Trachea midline, no thyromegaly or masses palpated, and no cervical lymphadenopathy. Supple, full range of motion without nuchal rigidity, or vertebral point tenderness. No Meningismus. Chest/axilla: Normal chest wall appearance and motion. Nontender with no deformity. No lesions are appreciated. Respiratory: Lungs have equal breath sounds bilaterally, clear to auscultation and percussion. No rales, rhonchi or wheezes noted. No increased work of breathing, no retractions or nasal flaring. Abdomen/GI: Soft, non-tender, with normal bowel sounds. No distension or tympany. No guarding or rebound. No evidence of tenderness throughout. Back: No spinal tenderness. No costovertebral tenderness. Full range of motion. Male : Normal genitalia with no discharge or lesions. Skin: Warm, dry with normal turgor. Normal color with no rashes, no lesions, and no evidence of cellulitis. Psych: Awake, alert, with orientation to person, place and time. Behavior, mood, and affect are within normal limits. 08:27 Cardiovascular: Rate: tachycardic, actual rate is 105 bpm, Rhythm: regular, Pulses: Pulses are 4+ in bilateral radial, brachial, femoral, popliteal, posterior tibial and and dorsalis pedis arteries.. Edema: is not appreciated, JVD: is not appreciated, 08:57 ECG was reviewed by the Attending Physician. [facility] Vital Signs: 08:24 BP 101 / 46 RA Supine (auto/reg); Pulse 105; Resp 15; Temp 98(T); Pulse Ox 97% on R/A; ko1 09:06 BP 117 / 60; Pulse 110; Resp 22; Pulse Ox 98% on R/A; ko1 10:00 BP 119 / 58; Pulse 104; Resp 24; Pulse Ox 100% on R/A; nj1 11:00 BP 112 / 51; Pulse 97; Resp 19; Pulse Ox 100% on R/A; nj1 12:40 BP 107 / 46; Pulse 102; Resp 20; Temp 98.1(TE); Pulse Ox 98% on R/A; nj1 13:30 BP 104 / 46; Pulse 101; Resp 21; Pulse Ox 98% on R/A; nj1 MDM: 08:23 Patient medically screened. [facility] 08:32 Data reviewed: vital signs, nurses notes, EMS record, lab test result(s), EKG, jory radiologic studies, plain films. Consideration of Admission/Observation Patient was admitted/placed on observation. Escalation of care including admission/observation considered. I considered the following discharge prescriptions or medication management in the emergency department Medications were administered in the Emergency Department. See MAR. Independent interpretation of the following test(s) in the Emergency Department EKG: See my EKG interpretation above. Test considered but Not performed: CT: no ct abd pel. Historians other than the Patient: EMS: ems well informed. Care significantly affected by the following chronic conditions: Hypertension. Counseling: I had a detailed discussion with the patient and/or guardian regarding the historical points, exam findings, and any diagnostic results supporting the discharge/admit diagnosis, lab results. 02/14 08:25 Order name: Basic Metabolic Panel; Complete Time: 09:40 [facility] 02/14 08:25 Order name: CBC with Diff; Complete Time: 09:40 jory 02/14 08:25 Order name: LFT's; Complete Time: 09:40 jory 02/14 08:25 Order name: Magnesium; Complete Time: 09:40 [facility] 02/14 08:25 Order name: NT PRO-BNP; Complete Time: 09:40 jory 02/14 08:25 Order name: PT-INR; Complete Time: 09:40 jory 02/14 08:25 Order name: Troponin HS; Complete Time: 09:40 [facility] 02/14 08:25 Order name: Lipase; Complete Time: 09:40 [facility] 02/14 08:25 Order name: Urinalysis w/ reflexes jory 02/14 08:40 Order name: Valproic Acid (depakote); Complete Time: 09:40 [facility] 02/14 09:59 Order name: Iron EDMS 02/14 09:59 Order name: Retic Count EDMS 02/14 09:59 Order name: Vitamin B12 Level EDMS 02/14 09:59 Order name: CBC with Automated Diff EDMS 02/14 10:32 Order name: Basic Metabolic Panel EDMS 02/14 10:32 Order name: Basic Metabolic Panel EDMS 02/14 10:32 Order name: Basic Metabolic Panel EDMS 02/14 10:32 Order name: Basic Metabolic Panel EDMS 02/14 10:32 Order name: Basic Metabolic Panel EDMS 02/14 10:32 Order name: Basic Metabolic Panel EDMS 02/14 10:32 Order name: CBC with Automated Diff EDMS 02/14 10:32 Order name: CBC with Automated Diff EDMS 02/14 10:32 Order name: CBC with Automated Diff EDMS 02/14 10:32 Order name: CBC with Automated Diff EDMS 02/14 10:32 Order name: CBC with Automated Diff EDMS 02/14 10:32 Order name: CBC with Automated Diff EDMS 02/14 10:32 Order name: Lipid Profile EDMS 02/14 10:32 Order name: Lipid Profile EDMS 02/14 10:32 Order name: Magnesium EDMS 02/14 10:32 Order name: Magnesium EDMS 02/14 10:32 Order name: Magnesium EDMS 02/14 10:32 Order name: Magnesium EDMS 02/14 10:32 Order name: Magnesium EDMS 02/14 10:32 Order name: Magnesium EDMS 02/14 10:32 Order name: Phosphorus EDMS 02/14 10:32 Order name: Phosphorus EDMS 02/14 10:32 Order name: Phosphorus EDMS 02/14 10:33 Order name: Phosphorus EDMS 02/14 10:33 Order name: Phosphorus EDMS 02/14 10:33 Order name: Phosphorus EDMS 02/14 10:38 Order name: Type and Screen EDMS 02/14 08:25 Order name: XRAY Chest (1 view); Complete Time: 09:06 [facility] 02/14 09:56 Order name: Abdomen EDMS 02/14 08:25 Order name: EKG; Complete Time: 08:25 [facility] 02/14 10:32 Order name: CONS Physician Consult [facility] 02/14 08:25 Order name: Cardiac monitoring; Complete Time: 08:33 [facility] 02/14 08:25 Order name: EKG - Nurse/Tech; Complete Time: 08:57 [facility] 02/14 08:25 Order name: IV Saline Lock; Complete Time: 08:33 [facility] 02/14 08:25 Order name: Labs collected and sent; Complete Time: 08:57 [facility] 02/14 08:25 Order name: O2 Per Protocol; Complete Time: 08:33 [facility] 02/14 08:25 Order name: O2 Sat Monitoring; Complete Time: 08:33 [facility] 02/14 08:40 Order name: IV Saline Lock - Large Bore; Complete Time: 09:16 [facility] 02/14 10:26 Order name: Bladder Scanner: NOT PVR; Complete Time: 11:02 [facility] EC:57 Rate is 107 beats/min. Rhythm is regular. QRS Alvin is Normal. AL interval is normal. [facility] QRS interval is normal. QT interval is normal. No Q waves. T waves are Normal. No ST changes noted. Clinical impression: Sinus tachycardia and No evidence of ischemia. Interpreted by me. Reviewed by me. Administered Medications: 08:33 Drug: NS 0.9% IV 500 ml IV at bolus once Route: IV; Rate: bolus; Site: right hand; ko1 08:36 Drug: Pantoprazole IVP 40 mg IVP once Route: IVP; Site: right hand; ko1 08:36 Drug: Ondansetron IVP 4 mg IVP once; over 2 minutes Route: IVP; Site: right hand; ko1 08:37 Drug: NS 0.9% IV 1000 ml IV at 100 ml/hr continuous Route: IV; Rate: 100 ml/hr; Site: ko1 right hand; 10:10 Drug: Pantoprazole IVP 40 mg IVP once Route: IVP; Site: right hand; nj1 10:12 Drug: Pantoprazole IV 8 mg/hr IV at 25 ml/hr continuous; (Standard dilution is 80 mg in nj1 250 mL NS) Route: IV; Rate: 25 ml/hr; Site: right hand; Disposition Summary: 02/15/24 09:48 Hospitalization Ordered Notes: Hospitalization Status: Inpatient Admission [facility] Provider: Cassidy Buckley cha Location: Telemetry/[facility]Sur (Inpatient) jory Condition: Fair jory Problem: new jory Symptoms: have improved jory Bed/Room Type: Standard jory Room Assignment: 407(02/15/24 12:23) eb Diagnosis - GI Bleed/ Gastrointestinal hemorrhage, unspecified - upper jory - Anemia, unspecified jory - Hypokalemia jory Forms: - Medication Reconciliation Form jory - SBAR form jory - Leadership Thank You Letter jory Signatures: Dispatcher [employer] EDDewayne Yuan MD MD cha Botello, Elizabeth eb Oliver, Kathy, RN RN ko1 Kimberly Villa RN RN nj1 Corrections: (The following items were deleted from the chart) 12: 09:48 jory eb
--- NOTE | 2024-02-15 09:49 | ER ---
Nurse's Notes [facility] Name: Jaison Yousif Age: 78 yrs Sex: Male : 1945 Arrival Date: 02/15/2024 Time: 08:20 Bed 8 Private MD: Diagnosis: GI Bleed/ Gastrointestinal hemorrhage, unspecified-upper;Anemia, unspecified;Hypokalemia Presentation: 02/14 08:24 Chief complaint: EMS states: called to [facility] for coffee ground emesis x ko1 1 this morning. Coronavirus screen: At this time, the client does not indicate any symptoms associated with coronavirus-19. Ebola Screen: No symptoms or risks identified at this time. Initial Sepsis Screen: Does the patient meet any 2 criteria? No. Patient's initial sepsis screen is negative. Does the patient have a suspected source of infection? No. Patient's initial sepsis screen is negative. Risk Assessment: Do you want to hurt yourself or someone else? Patient reports no desire to harm self or others. Onset of symptoms was February 15, 2024. Care prior to arrival: Medication(s) given: Normal saline infusion, 1000 mL, IV initiated. 20 GA, in the right hand. Transition of care: patient was received from another setting of care (long-term care facility), [facility]. 08:24 Method Of Arrival: EMS: [facility] ko1 08:24 Acuity: LIBIA 3 ko1 Triage Assessment: 08:26 General: Appears in no apparent distress. Behavior is calm. Pain: Denies pain. EENT: No ko1 deficits noted. Neuro: Level of Consciousness is awake, alert, confused, Oriented to none. Cardiovascular: No deficits noted. Respiratory: No deficits noted. GI: Parent/caregiver reports the patient having vomiting, coffee ground emesis x 1 this morning. 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 Derm: No deficits noted. Musculoskeletal: Range of motion: limited in all extremities, contractures to all extremities. Historical: - Allergies: 08: No Known Allergies; ko1 - PMHx: 08: CVA; Dementia; Hypertensive disorder; ko1 - PSHx: : Unable to Obtain; ko1 - Immunization history:: Adult Immunizations unknown. - Social history:: Smoking status: unknown. - Family history:: not pertinent. Screenin:31 [facility] ED Fall Risk Assessment (Adult) History of falling in the last 3 months, ko1 including since admission No falls in past 3 months (0 pts) Confusion or Disorientation Yes (5 pts) Intoxicated or Sedated No (0 pts) Impaired Gait No (0 pts) Mobility Assist Device Used No (0 pt) Altered Elimination Yes (1 pt) Score/Fall Risk Level 0 - 2 = Low Risk Oriented to surroundings, Maintained a safe environment, Educated pt \T\ family on fall prevention, incl call for assistance when getting out of bed, Assessed \T\ reinforced patient's understanding of fall precautions, Provided non-skid footwear, Hourly rounding (assess needs \T\ fall precautionary measures) done, Used ambulatory aids as needed (educated on \T\ assisted with), Used gait belt as appropriate. Abuse screen: Denies threats or abuse. Denies injuries from another. Nutritional screening: No deficits noted. Tuberculosis screening: No symptoms or risk factors identified. Assessment: 08:31 Reassessment: see triage note. ko1 09:23 Reassessment: Family at bedside, update on POC provided. Questions answered, will [facility] update as information becomes available. 09:24 Reassessment: Patient appears in no apparent distress at this time. No changes from [facility] previously documented assessment. 11:00 Reassessment: Patient appears in no apparent distress at this time. No changes from nj1 previously documented assessment. 12:40 Reassessment: Patient appears in no apparent distress at this time. Pt resting/sleeping.nj1 13:30 Reassessment: Patient appears in no apparent distress at this time. Pt resting/sleeping.nj1 13:53 Reassessment: Transport to floor delayed due to family member wanting Dr Olivares to nj1 come talk to them. Dr Olivares aware. Vital Signs: 08:24 BP 101 / 46 RA Supine (auto/reg); Pulse 105; Resp 15; Temp 98(T); Pulse Ox 97% on R/A; ko1 09:06 BP 117 / 60; Pulse 110; Resp 22; Pulse Ox 98% on R/A; ko1 10:00 BP 119 / 58; Pulse 104; Resp 24; Pulse Ox 100% on R/A; nj1 11:00 BP 112 / 51; Pulse 97; Resp 19; Pulse Ox 100% on R/A; nj1 12:40 BP 107 / 46; Pulse 102; Resp 20; Temp 98.1(TE); Pulse Ox 98% on R/A; nj1 13:30 BP 104 / 46; Pulse 101; Resp 21; Pulse Ox 98% on R/A; nj1 ED Course: 08:23 Patient arrived in ED. jory 08:23 Dewayne Olivares MD is Attending Physician. jory 08:23 Teresa Reece, RN is Primary Nurse. ko1 08:26 Triage completed. ko1 08:26 Arm band placed on right wrist. Patient placed in an exam room, on a stretcher, on ko1 quality assurance monitor chassis, on pulse oximetry, Patient notified of wait time. 08:31 Patient has correct armband on for positive identification. Placed in gown. Bed in low ko1 position. Call light in reach. Side rails up X2. Provided Education on: labs. Client placed on continuous cardiac and pulse oximetry monitoring. NIBP monitoring applied. property assessment monitor on. Door closed. Noise minimized. Warm blanket given. 08:31 Maintain EMS IV. Dressing intact. Site clean \T\ dry. Gauge \T\ site: 20g right hand. ko 1 08:42 XRAY Chest (1 view) In Process Unspecified. EDMS 08:45 Straight cath inserted, using sterile technique, 16 Fr. Unable to obtain specimen. jg11 08:48 EKG done, by ED staff. jg11 08:55 Inserted saline lock: 22 gauge in left forearm, using aseptic technique. Blood ko1 collected. 08:55 Initial lab(s) drawn, by de, sent to lab. ko1 08:57 Lipase Sent. ko1 08:57 Basic Metabolic Panel Sent. ko1 08:57 CBC with Diff Sent. ko1 08:57 LFT's Sent. ko1 08:57 Magnesium Sent. ko1 08:57 NT PRO-BNP Sent. ko1 08:57 PT-INR Sent. ko1 08:57 Troponin HS Sent. ko1 09:45 Cassidy Buckley MD is Hospitalizing Provider. jory 09:45 Straight cath inserted, using sterile technique, 18 Fr. coude. Unable to obatined nj1 specimen at this time. 09:50 Disposable brief changed. nj1 09:55 Notified ED physician of other unable to obtain urine sample. nj1 11:00 Bladder scan completed. 227ml. nj1 11:05 IV is swollen, Flushed left forearm with 5 ml normal saline IV discontinued, intact, nj1 bleeding controlled, Pressure dressing applied. 14:15 Repositioned patient. Cleaned of incontinence. nj1 14:18 No provider procedures requiring assistance completed. nj1 Administered Medications: 08:33 Drug: NS 0.9% IV 500 ml IV at bolus once Route: IV; Rate: bolus; Site: right hand; ko1 08:36 Drug: Pantoprazole IVP 40 mg IVP once Route: IVP; Site: right hand; ko1 08:36 Drug: Ondansetron IVP 4 mg IVP once; over 2 minutes Route: IVP; Site: right hand; ko1 08:37 Drug: NS 0.9% IV 1000 ml IV at 100 ml/hr continuous Route: IV; Rate: 100 ml/hr; Site: ko1 right hand; 10:10 Drug: Pantoprazole IVP 40 mg IVP once Route: IVP; Site: right hand; nj1 10:12 Drug: Pantoprazole IV 8 mg/hr IV at 25 ml/hr continuous; (Standard dilution is 80 mg in nj1 250 mL NS) Route: IV; Rate: 25 ml/hr; Site: right hand; Medication: 08:31 VIS not applicable for this client. ko1 Outcome: 09:48 Decision to Hospitalize by Provider. jory 14:18 Admitted to Tele accompanied by tech, via stretcher, room 404, Report called to [facility] paperwork faxed to floor at [phone] 14:18 Condition: stable 14:18 Instructed on the need for admit, 14:19 Patient left the ED. nj1 Signatures: Dispatcher [employer] EDID Dewayne Olivares MD MD cha Oliver, Kathy, RN RN ko1 Kimberly Villa RN RN nj1 Cesar Brown jg11 Corrections: (The following items were deleted from the chart) 11:10 10:30 Straight cath inserted, using sterile technique, 16 Fr. Unable to obtain jg11 specimen. jg11 11:25 11:00 Pulse 97bpm; Resp 19bpm; Pulse Ox 100% RA; nj1 nj1 14:17 12:40 BP 107 / 46; Pulse 102bpm; Resp 20bpm; Pulse Ox 98% RA; Temp 98.1F; nj1 nj1
[2024-02-15] MEDS ORDERED: NA CHLORIDE 0.9% 250 ML ONE (09:57)
--- NOTE | 2024-02-15 10:18 | P.HP ---
Certification for Inpatient Patient admitted to: Observation With expected LOS: >2 Midnights Patient will require the following post-hospital care: None Practitioner: I am a practitioner with admitting privileges, knowledge of patient current condition, hospital course, and medical plan of care. Services: Services provided to patient in accordance with Admission requirements found in Title 42 Section 412.3 of the Code of Federal Regulations <Edith Syed - Last Filed: 02/15/24 16:43> Patient History Date of Service: 02/15/24 Reason for admission: Hematemesis History of Present Illness: Jaison Yousif is a 78-year-old male with past medical history of CVA on plavix x 10 years and hypertensive disorder who presents to the ED with chief complaint vomiting coffee-ground emesis, abdominal pain, and hypotension which began early this morning. Son is at the bedside and is a good historian, he reports his father had a similar episode several years ago. He does not believe his father has dementia but is nonverbal and agitated with the nursing staff when they work with him. While in the ED he was given Protonix, normal saline, and Zofran. Initial vitals BP 101 / 46 Supine; Pulse 105; Resp 15; Temp 98(T); Pulse Ox 97% on R/A Laboratory evaluation WBC 14, H&H 9.1/28.1, platelets 382, neutrophils 79.5,Sodium 134, potassium 3.4, BUN/creatinine 16/0.49, GFR 105, serum glucose 117, magnesium 1.8, troponin 14.1, BNP 82, albumin 2.4 Chest x-ray reports "Lungs: No evidence of edema or pneumonia. Chronic interstitial thickening. Pleural: No significant pleural effusions or pneumothorax. Cardiac: The heart size is within normal limits. Mediastinum: Within normal limits. Bones: No acute fractures. Other: None. IMPRESSION: No acute cardiopulmonary disease." CT abd pelvis reports " No acute intra-abdominal or pelvic finding. Question fecal impaction. Circumferentially thickened distal esophagus which may reflect esophagitis. Mild nodularity in the lung bases could reflect mild pneumonia or pneumonitis, possibly secondary to aspiration. Erosion of the right ischial tuberosity with soft tissue. This could reflect osteomyelitis." Jaison will be admitted to hospitalist service for further evaluation and treatment of coffee-ground emesis, abdominal pain with hypotension. Dr. Pradhan has been consulted - Past Medical/Surgical History Diabetic: No -: History of CVA -: HTN - Social History Alcohol use: No CD- Drugs: No Caffeine use: No <Edith Syed - Last Filed: 02/15/24 16:43> Date of Service: 02/17/24 <Cassidy Buckley - Last Filed: 02/17/24 05:34> Allergies No Known Allergies Allergy (Unverified 04/19/12 16:34) Home Medications: Aspirin [Aspirin EC 81 MG] 1 tab PO DAILY 04/20/12 Clopidogrel Bisulfate [Plavix] 1 tab PO DAILY 04/20/12 Omeprazole Magnesium [Prilosec Otc] 20 mg PO DAILY 04/20/12 Atorvastatin Calcium 10 mg PO BEDTIME 04/30/12 Lisinopril/Hydrochlorothiazide [Lisinopril-Hctz 20-12.5 mg Tab] 1 each PO DAILY 04/30/12 Pantoprazole [Protonix Tab*] 40 mg PO DAILYAC #0 tab 05/02/12 Buspirone HCl 5 mg PO TID 02/15/24 Cholecalciferol (Vitamin D3) [Vitamin D3] 1,250 mcg PO DAILY 02/15/24 Divalproex Sodium [Depakote Sprinkle] 125 mg PO DAILY 02/15/24 PARoxetine HCL [Paxil] 40 mg PO BEDTIME 02/15/24 Amox/K Clav [Augmentin 600 MG/5 ML Susp] 5 ml PO BID #150 ml 02/16/24 Review of Systems Gastrointestinal: Nausea, Vomiting, Abdominal Pain, Other (hematemesis) <Edith Syed - Last Filed: 02/15/24 16:43> Physical Examination - Physical Exam General: Other (Dementia) HEENT: Atraumatic, Normocephalic, PERRLA Neck: Supple Respiratory: Clear to auscultation bilaterally, Normal air movement Cardiovascular: Normal pulses, Regular rate/rhythm, Normal S1 S2 Capillary refill: <2 Seconds Gastrointestinal: Soft and benign, Non-distended Musculoskeletal: Contractures Neurological: Other, Dementia - Studies Laboratory Data (last 24 hrs) 02/15/24 02/15/24 02/15/24 11:30 08:50 08:50 WBC Cancelled 14.00 H Hgb Cancelled 9.1 L Hct Cancelled 28.1 L Plt Count Cancelled 382 PT 14.3 H INR 1.31 Sodium Potassium BUN Creatinine Glucose Magnesium Total Bilirubin AST ALT Alkaline Phosphatase Lipase 02/15/24 08:50 WBC Hgb Hct Plt Count PT INR Sodium 134 L Potassium 3.4 L BUN 16 Creatinine 0.49 L Glucose 117 H Magnesium 1.8 Total Bilirubin 0.9 AST 13 L ALT 13 L Alkaline Phosphatase 53 Lipase 38 <Edith Syed - Last Filed: 02/15/24 16:43> Assessment and Plan - Plan Assessment and plan Hematemesis associated with abdominal pain Leukocytosis Fecal imaction Esophagitis CT of abdomen pelvis reports "No acute intra-abdominal or pelvic finding. Question fecal impaction. Circumferentially thickened distal esophagus which may reflect esophagitis." H&H 9.1/28.1, platelet 382, WBC 14, neutrophils 79.5 Repeat H&H 8.7/27.8 Protonix gtt Carafate 4 times daily Zosyn Gentle IVF Consult Dr. 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 labs Hypertensive disorder presents hypotensive Monitor every 4 hours Hold antihypertensive for now DVT PPx SCDs for now LOS 2 to 3 days Discharge Plan: Intermediate Plan to discharge in: 48 Hours - Advance Directives Does patient have a Living Will: No Does patient have a Durable POA for Healthcare: Yes Time Spent Managing Pts Care (In Minutes): 50 <Edith Syed - Last Filed: 02/15/24 16:43> Date of Service: 02/15/24 History and physical completed. Chart has been reviewed. Events of the last 24 hours have been noted. Case discussed with BUCK. I performed a substantial part of the MDM during this patient's care today. I personally made or approved the documented management plan and acknowledge its risk of complications. I agree with the findings and documentation provided in the BUCK's notes. Concern for GI bleeding. Patient lethargic. Gastroenterology consulted. EGD scheduled for later today. <Cassidy Buckley - Last Filed: 02/17/24 05:34>
[2024-02-15] MEDS ORDERED: ONDANSETRON 4 MG/2 ML VIAL IV PRN (10:24)
[2024-02-15] MEDS ORDERED: SODIUM CHLORIDE 0.9% 10ML INJ IV PRN (10:33)
[2024-02-15] MEDS: PANTOPRAZOLE 40 MG INJ IVP SCH (10:33)
--- NOTE | 2024-02-15 11:02 | RAD REPORT ---
EXAM DESCRIPTION: CTAbdomen Pelvis W Contrast - 02/15/2024 10:45 am CLINICAL HISTORY: GI bleed COMPARISON: CT ABD PELVIS W CONTRAST dated 04/29/2012 TECHNIQUE: CT of the abdomen and pelvis was performed. All CT scans are performed using dose optimization technique as appropriate and may include automated exposure control or mA/KV adjustment according to patient size. FINDINGS: Lower chest: Left lower lobe and right middle lobe nodularity noted. Circumferential thick ened distal esophagus. Small hiatal hernia. Liver: No acute abnormality or suspicious lesions. Hepatic steatosis . Biliary: No biliary ductal dilatation. Stomach: No significant focal abnormality. Duodenum: No significant focal abnormality. Pancreas: No significant abnormality. Spleen: No significant abnormality. Adrenal: No suspicious lesions. Kidney/ureter: No hydronephrosis. Small stones versus early excretion contrast . Retroperitoneum: No retroperitoneal adenopathy. Vascular: No aneurysm. Atherosclerosis Bowel: Large rectal stool burden.. Peritoneum: No ascites or free air. Bladder: Grossly unremarkable. Reproductive: No adnexal masses. Bones: Possible osteomyelitis at the right ischial tuberosity. There is erosion of underlying bone. Other: n/a IMPRESSION: No acute intra-abdominal or pelvic finding. Question fecal impaction. Circumferentially thickened distal esophagus which may reflect esophagitis. Mild nodularity in the lung bases could reflect mild pneumonia or pneumonitis, possibly secondary to aspiration. Erosion of the right ischial tuberosity with soft tissue. This could reflect osteomyelitis .
[2024-02-15] MEDS: SUCRALFATE 1GM/10ML UCUP FT SCH (13:00)
[2024-02-15 15:21] VITALS: BMI 14.8
[2024-02-15 16:14] LABS: Absolute Lymphocytes (CBC) 1.4 K/uL (0.7-4.9); Absolute Monocytes 1.4 K/uL (0.1-1.3); Absolute Neutrophil 12.6 K/uL (1.8-8.0); Basophils % 0.2 % (0-1.3); Eosinophils % 0.1 % (0-4.4); Hematocrit 27.8 % (39.6-49.0); Hemoglobin 8.7 g/dL (13.6-17.9); Lymphocytes % 9.3 % (15.3-44.8); MCH 25.2 pg (27.0-35.0); MCHC 31.2 g/dL (32.0-36.0); MCV 80.5 fL (80-100); MPV 8.1 fL (7.6-11.3); Monocytes % 9.4 % (3.3-12.3); Percent Reticulocyte Count 1.73 % (0.4-2.05); Platelets 339 thou/uL (152-406); RBC Red Blood Cell Count 3.45 M/uL (4.33-5.43); Red Cell Distribution Width 15.4 % (12.1-15.2)
[2024-02-15] MEDS: PANTOPRAZOLE INJ 80 MG in NA CHLORIDE 0.9% 250 ML IV SCH (17:06)
[2024-02-15] MEDS: PIPER TAZO 3.375 GM in NA CHLORIDE 0.9% 100 ML IV SCH (17:07)
[2024-02-15] MEDS ORDERED: propofoL 200 MG/20 ML VIAL IV ONE (17:31)
[2024-02-15] MEDS ORDERED: LIDOCAINE 1% MPF 2 ML AMPULE ONE (17:31)
[2024-02-15] MEDS: Ringers Lactate 1,000 ML IV ONE (17:40)
[2024-02-15] MEDS: VANCOMYCIN 1.25 GM in NA CHLORIDE 0.9% 250 ML IVPB ONE (18:00)
[2024-02-15] MEDS ORDERED: VANCOMYCIN 1 GM in NA CHLORIDE 0.9% 250 ML IVPB SCH (21:00)
[2024-02-15] MEDS: PARoxetine HCL 10 MG TAB PO SCH (21:00)
[2024-02-15] MEDS: BUSPIRONE HCL 5 MG TABLET PO SCH (21:00)
--- NOTE | 2024-02-15 21:34 | CON ---
Date of Consultation: 02/15/2024 Reason For Consultation: Upper GI bleed, coffee-ground emesis with hypotension and abdominal pain. History Of Present Illness: The patient is a 78-year-old male with history of hyper tension; hyperlipidemia; stroke; probably seizure disorder, on Depakote. The patient came to the [facility] due to coffee-grounds emesis, found to have a hemoglobin down to 8.7. He has a history of iron -deficiency anemia as well. Of note, he was hypotensive this morning as reported with some abdominal pain, location not specified. The patient is unable to give history now, but family will be consult ed and spoken to. The patient is nonverbal due to stroke according to family history, but not aga ed. Does respond appropriately to questions with movement such as nodding or shaking head according to family. Past Medical History: Significant for hypertension, hyperlipidemia, stroke, seizures. Medications: At home include aspirin, Plavix, Prilosec, Lipitor, lisinopril, hydrochlorothiazide, Pr otonix, buspirone, vitamin D3, Depakote, Paxil. Allergies: NKDA. Social History: No tobacco, no alcohol. Family History: See chart. Review of Systems: The patient has nausea, vomiting, coffee-grounds emesis, abdominal pain, hypotension. No chest pain, shortness of breath, seizure, syncope, marked muscle aches, joint aches, backaches, melena, hematoch ezia, hematuria, dysuria, polydipsia, epistaxis, or hemoptysis. Physical Examination: Vital Signs: The patient is 5 feet, 900 pounds, BMI of 14.8 kg/sq m. General: He is well nourished, well developed, no acute distress. Current lying in bed, somewhat mo aning, will respond to physical and verbal stimuli. HEENT: Normocephalic, atraumatic. Anicteric pupils. Pupils equal, round, and reactive to light. E xtraocular movements are intact. Oropharynx is clear. Neck: Supple. No masses. Respirations: Clear to auscultation bilaterally. Cardiac: Regular rate and rhythm. No gallops or rubs. Abdomen: Positive bowel sounds. Soft, nontender, nondistended. No hepatosplenomegaly. Extremities: No clubbing, cyanosis, or edema. 2+ pulses. Neuro: Responds to verbal and physical stimuli, but not otherwise obeying commands, but able to move extremities somewhat. Laboratory Data: The patient has a white count of 15.5, up from 14.0 yesterday; hemoglobin of 8.7, d own from 9.1 yesterday; hematocrit 27.8; MCV of 81; platelet count of 339; polys of 81%; lymphocytes 9%; monocytes 9%. PT of 14.3, INR of 1.31. Sodium of 134, potassium 3.4, chloride 99, bicarb 30, BU N of 16, creatinine of 0.5, glucose 117, calcium 8.7. Magnesium 1.8. Iron of 23, total bilirubin 0. 9, direct bilirubin 0.3, indirect 0.6, AST of 13, ALT of 13, alkaline phosphatase 53. Troponin I of 14.1. B-type natriuretic peptide of 82. Total protein 6.6, albumin 2.4 with a globulin of 4.2. Klaudia vated lipase 38. Vitamin B12 of 1499. UA pending. Valproic acid of 53.[address] abdomen and pel vis, circumferential thickening of the distal esophagus may reflect esophagitis, lung bases reflect m ild pneumonia, pneumonitis, possible aspiration, erosion in the right greater tuberosity soft-tissue, could represent osteomyelitis. Impression: 1.Upper gastrointestinal bleed, coffee-grounds emesis with hypotension and some nondescript abdomina l pain as per family, on aspirin and Plavix due to stroke years ago. We will need to investigate EGD and probably decrease patient's anticoagulation to remove the Plavix, may be long-term. 2.History of anemia with hemoglobin 8.79. 3.History of iron-deficiency anemia. Investigate with esophagogastroduodenoscopy. 4.History of hypertension, hyperlipidemia, stroke from seizures. Recommendations: 1.Continue IV fluid resuscitation, serial H and H, and transfuse p.r.n. 2.PPI therapy. 3.EGD urgently. 4.Keep patient n.p.o. 5.Hold aspirin, Plavix. WS/MODL Voice ID: [id number] Report ID: [id number]
[2024-02-15] MEDS: VANCOMYCIN 500 MG/VIAL ONE (23:11)
[2024-02-15] MEDS: NA CHLORIDE 0.9% 250 ML ONE (23:12)
[2024-02-15] MEDS: ATORVASTATIN 80 MG TAB PO SCH (23:16)
[2024-02-16 03:36] LABS: Absolute Lymphocytes (CBC) 1.6 K/uL (0.7-4.9); Absolute Monocytes 0.9 K/uL (0.1-1.3); Absolute Neutrophil 7.6 K/uL (1.8-8.0); Basophils % 0.4 % (0-1.3); Eosinophils % 0.3 % (0-4.4); Hematocrit 27.2 % (39.6-49.0); Hemoglobin 8.6 g/dL (13.6-17.9); Lymphocytes % 15.5 % (15.3-44.8); MCH 25.6 pg (27.0-35.0); MCHC 31.8 g/dL (32.0-36.0); MCV 80.4 fL (80-100); MPV 7.9 fL (7.6-11.3); Monocytes % 8.9 % (3.3-12.3); Neutrophils % 74.9 % (41.7-73.7); Platelets 337 thou/uL (152-406); RBC Red Blood Cell Count 3.38 M/uL (4.33-5.43); Red Cell Distribution Width 15.4 % (12.1-15.2)
[2024-02-16 03:50] LABS: Anion Gap 8.3 mEq/L (5.0-15.0); Magnesium 1.7 mg/dL (1.6-2.4); Potassium 3.3 mEq/L (3.5-5.1)
[2024-02-16] MEDS ORDERED: PANTOPRAZOLE 40MG TABLET PO SCH (06:30)
[2024-02-16] MEDS: DIVALPROEX 125 MG PO SCH (09:00)
[2024-02-16] MEDS: PANTOPRAZOLE 40MG TABLET PO SCH (09:27)
[2024-02-16] MEDS: ASPIRIN EC 81 MG TAB PO SCH (09:27)
[2024-02-16] MEDS: SOD FERRIC GLUC COMPLX/SUCROSE 125 MG in NA CHLORIDE 0.9% 100 ML IV SCH (09:27)
[2024-02-16] MEDS: CLOPIDOGREL 75 MG TABLET PO SCH (09:28)
[2024-02-16] MEDS: CEFEPIME 1 GM in NA CHLORIDE 0.9% 100 ML IV SCH (09:28)
[2024-02-16] MEDS: POTASSIUM CL SA 10 MEQ TAB PO ONE (09:49)
--- NOTE | 2024-02-16 11:29 | P.PN ---
Subjective Date of Service: 02/16/24 Chief Complaint: Hematemesis, coffee-ground emesis Subjective: Improving (No further hematemesis / coffee-ground emesis. Hgb 8.6 today, stabilizing. EGD revealed few erosions with minute amounts of fresh heme) Review of Systems 10-point ROS is otherwise unremarkable General: Weakness Physical Examination - Vital Signs Temperature: 97.5 F Blood Pressure: 143/70 Pulse: 92 Respirations: 16 Pulse Ox (%): 98 - Physical Exam General: Alert, In no apparent distress, Cooperative HEENT: Atraumatic, Normocephalic, PERRLA, EOMI Neck: Supple Respiratory: Normal air movement Cardiovascular: Normal pulses Gastrointestinal: Soft and benign, No tenderness, No rebound, No guarding Assessment And Plan - Current Problems (Diagnosis) (1) Coffee ground emesis Current Visit: Yes Status: Acute Comment: Improved. (2) Anemia Current Visit: Yes Status: Acute (3) Gastric erosions Current Visit: Yes Status: Acute - Plan REC: 1) continue PPI bid for 2 months and then qAM for 1 month and then prn 2) discontinue Plavix and continue ASA, if possible
--- NOTE | 2024-02-16 15:39 | P.DS ---
Admission Date: 02/15/24 Discharge Date: 02/16/24 Disposition: TRANSFER TO ASSISTED Discharge Condition: GOOD Reason for Admission: Hematemesis, coffee-ground emesis Brief History of Present Illness: Jaison Yousif is a 78-year-old male with past medical history of CVA on plavix x 10 years and hypertensive disorder who presents to the ED with chief complaint vomiting coffee-ground emesis, abdominal pain, and hypotension which began early this morning. Son is at the bedside and is a good historian, he reports his father had a similar episode several years ago. He does not believe his father has dementia but is nonverbal and agitated with the nursing staff when they work with him. While in the ED he was given Protonix, normal saline, and Zofran. Initial vitals BP 101 / 46 Supine; Pulse 105; Resp 15; Temp 98(T); Pulse Ox 97% on R/A Laboratory evaluation WBC 14, H&H 9.1/28.1, platelets 382, neutrophils 79.5,Sodium 134, potassium 3.4, BUN/creatinine 16/0.49, GFR 105, serum glucose 117, magnesium 1.8, troponin 14.1, BNP 82, albumin 2.4 Chest x-ray reports "Lungs: No evidence of edema or pneumonia. Chronic interstitial thickening. Pleural: No significant pleural effusions or pneumothorax. Cardiac: The heart size is within normal limits. Mediastinum: Within normal limits. Bones: No acute fractures. Other: None. IMPRESSION: No acute cardiopulmonary disease." CT abd pelvis reports " No acute intra-abdominal or pelvic finding. Question fecal impaction. Circumferentially thickened distal esophagus which may reflect esophagitis. Mild nodularity in the lung bases could reflect mild pneumonia or pneumonitis, possibly secondary to aspiration. Erosion of the right ischial tuberosity with soft tissue. This could reflect osteomyelitis." Jaison will be admitted to hospitalist service for further evaluation and hipolito tment of coffee-ground emesis, abdominal pain with hypotension. Dr. Pradhan has been consulted Vital Signs/Physical Exam: Temp Pulse Resp BP Pulse Ox 97.8 F 108 H 16 159/75 H 98 02/16/24 12:00 02/16/24 12:00 02/16/24 12:00 02/16/24 12:00 02/16/24 12:00 Laboratory Data at Discharge: WBC 10.10 thou/uL (4.3-10.9) 02/16/24 03:15 Hgb 8.6 g/dL (13.6-17.9) L 02/16/24 03:15 Hct 27.2 % (39.6-49.0) L 02/16/24 03:15 Plt Count 337 thou/uL (152-406) 02/16/24 03:15 PT 14.3 SECONDS (9.5-12.5) H 02/15/24 08:50 INR 1.31 02/15/24 08:50 Sodium 138 mEq/L (136-145) 02/16/24 03:15 Potassium 3.3 mEq/L (3.5-5.1) L 02/16/24 03:15 BUN 8 mg/dL (7-18) 02/16/24 03:15 Creatinine 0.37 mg/dL (0.70-1.30) L 02/16/24 03:15 Glucose 86 mg/dL (74-106) 02/16/24 03:15 Phosphorus 3.0 mg/dL (2.5-4.9) 02/16/24 03:15 Magnesium 1.7 mg/dL (1.6-2.4) 02/16/24 03:15 Total Bilirubin 0.9 mg/dL (0.2-1.0) 02/15/24 08:50 AST 13 U/L (15-37) L 02/15/24 08:50 ALT 13 U/L (16-61) L 02/15/24 08:50 Alkaline Phosphatase 53 U/L (45-117) 02/15/24 08:50 Triglycerides 39 mg/dL (<150) 02/16/24 03:15 Cholesterol 108 mg/dL (<200) 02/16/24 03:15 HDL Cholesterol 35 mg/dL (40-60) L 02/16/24 03:15 Cholesterol/HDL Ratio 3.09 02/16/24 03:15 Lipase 38 U/L (13-75) 02/15/24 08:50 Home Medications: Aspirin [Aspirin EC 81 MG] 1 tab PO DAILY 04/20/12 Clopidogrel Bisulfate [Plavix] 1 tab PO DAILY 04/20/12 Omeprazole Magnesium [Prilosec Otc] 20 mg PO DAILY 04/20/12 Atorvastatin Calcium 10 mg PO BEDTIME 04/30/12 Lisinopril/Hydrochlorothiazide [Lisinopril-Hctz 20-12.5 mg Tab] 1 each PO DAILY 04/30/12 Pantoprazole [Protonix Tab*] 40 mg PO DAILYAC #0 tab 05/02/12 Buspirone HCl 5 mg PO TID 02/15/24 Cholecalciferol (Vitamin D3) [Vitamin D3] 1,250 mcg PO DAILY 02/15/24 Divalproex Sodium [Depakote Sprinkle] 125 mg PO DAILY 02/15/24 PARoxetine HCL [Paxil] 40 mg PO BEDTIME 02/15/24 Amox/K Clav [Augmentin 600 MG/5 ML Susp] 5 ml PO BID #150 ml 02/16/24 New Medications: Amox/K Clav [Augmentin 600 MG/5 ML Susp] 5 ml PO BID #150 ml Physician Discharge Instructions: Jaison Benja presented to the ED with chief complaint of coffee groung emesis. Dr Quezada was consulted and he performed an EGD to further investigate the GI system. Per Dr. Mccoy note, EGD revealed few erosions with minute amounts of fresh blood. H/H has been stable this admission. Dr. Quezada recommends continuing the protonix twice a day for 2 months then protonix in the AM for one month and then protonix PRN. He also recommends stopping the aspirin and plavix if possible. Discussion with PCP concerning the plavix continuing. Please follow up with Jaison's PCP and with GI. -DC IV and DC home -Follow-up with PCP in 1 to 2 weeks -Follow-up with GI in 1 to 2 weeks -Please call Dr. Buckley at [phone] if any questions regarding hospital stay -Please call nursing station at [phone] if any nursing or medication questions -Return to the emergency room if symptoms worsen Diet: AHA Activity: Fall precautions Followup: NONE,NONE [Primary Care Provider] -
--- NOTE | 2024-02-16 17:45 | P.PN ---
Date of Service: 02/16/24 Subjective Awake and responding to conversation, nodding his head normally says yes Tolerated full liquid diet and advance to regular diet with soft bite-size pieces. Swallowing was harsh sounded like full of air. Will need to monitor tonight for tolerance. ROS 10 point ROS as noted above, otherwise negative Physical Exam General: Other (Dementia) HEENT: Atraumatic, Normocephalic, PERRLA Neck: Supple Respiratory: Clear to auscultation bilaterally, Normal air movement Cardiovascular: 2+ peripheral pulses, RRR, S1-S2 present Capillary refill: <2 Seconds Gastrointestinal: Soft and benign on palpation, ND/NT, active bowel sounds Musculoskeletal: Contractures Neurological: Other, Dementia Vitals Reviewed Problem list Hematemesis associated with abdominal pain Leukocytosis Fecal imaction Esophagitis Pneumonitis vs pneumonia possibly aspiration Erosion of right ischial tuberosity (POA) Severe weakness and debility Iron deficiency anemia Hyperglycemic Assessment and Plan Hematemesis associated with abdominal pain Leukocytosis Fecal imaction Esophagitis CT of abdomen pelvis reports "No acute intra-abdominal or pelvic finding. Question fecal impaction. Circumferentially thickened distal esophagus which may reflect esophagitis." initial labs H&H 9.1/28.1 (Repeat H&H 8.7/27.8), platelet 382, WBC 14, neutrophils 79.5 H/H8.6/27.2 stable Protonix p.o. twice daily for 2 months, Protonix p.o. daily for 1 month, Protonix as needed after that course Carafate 4 times daily Zosyn Gentle IVF Consult Dr. Pradhan EGD 02/14 reports few erosions with minute amounts of fresh heme Advanced diet, tolerated full liquid without nausea or vomiting. 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 labs Hypertensive disorder presents hypotensive Monitor every 4 hours Hold antihypertensive for now Seizure disorder Continue Depakote DVT PPx SCDs for now LOS 2 to 3 days <Edith Syed - Last Filed: 02/16/24 18:12> Chart has been reviewed. Events of the last 24 hours have been noted. Case discussed with [facility]. I performed a substantial part of the MDM during this patient's care today. I personally made or approved the documented management plan and acknowledge its risk of complications. I agree with the findings and documentation provided in the [facility]'s notes. EGD completed. No signs of active bleeding. Anticipate discharge in a.m. <Cassidy Buckley - Last Filed: 02/17/24 05:33>
[2024-02-16] MEDS ORDERED: HYDRALAZINE HCL 20 MG/ML VIAL IV PRN (18:19)
[2024-02-16] MEDS: ATORVASTATIN 10 MG TAB PO SCH (21:00)
[2024-02-16 21:59] VITALS: O2SAT 99
[2024-02-17] MEDS ORDERED: VANCOMYCIN 750 MG in NA CHLORIDE 0.9% 150 ML IVPB SCH ×2 (06:00→10:00)
[2024-02-17 06:45] LABS: Absolute Monocytes 1.2 K/uL (0.1-1.3); Basophils % 0.2 % (0-1.3); Eosinophils % 0.1 % (0-4.4); Hematocrit 26.5 % (39.6-49.0); Hemoglobin 8.8 g/dL (13.6-17.9); Lymphocytes % 9.1 % (15.3-44.8); MCH 26.3 pg (27.0-35.0); MCHC 33.1 g/dL (32.0-36.0); MCV 79.4 fL (80-100); MPV 7.7 fL (7.6-11.3); Monocytes % 10.8 % (3.3-12.3); Neutrophils % 79.8 % (41.7-73.7); Platelets 390 thou/uL (152-406); RBC Red Blood Cell Count 3.34 M/uL (4.33-5.43); Red Cell Distribution Width 15.2 % (12.1-15.2)
[2024-02-17 07:08] LABS: Anion Gap 11.9 mEq/L (5.0-15.0); Magnesium 1.8 mg/dL (1.6-2.4); Phosphorus 2.5 mg/dL (2.5-4.9); Potassium 2.9 mEq/L (3.5-5.1)
[2024-02-17] MEDS ORDERED: POTASSIUM 25 MEQ EFFERV TAB PO ONE ×2 (09:00)
[2024-02-17] MEDS: CEFEPIME 1 GM in NA CHLORIDE 0.9% 100 ML IV SCH (09:00)
[2024-02-17 09:48] VITALS: TEMP 97.4
[2024-02-17] MEDS: NA CHLORIDE 0.9% 250 ML ONE (10:11)
[2024-02-17] MEDS: KCL 20 MEQ/100 mL IVPB 100 ML IV ONE (10:13)
[2024-02-17] MEDS: VITAMIN D 5,000 UNIT CAP PO SCH (10:13)
--- NOTE | 2024-02-17 11:00 | P.DS ---
Admission Date: 02/15/24 Discharge Date: 02/17/24 Disposition: TRANSFER TO [facility]ITENTI[facility] Discharge Condition: GOOD Reason for Admission: Hematemesis, coffee-ground emesis Brief History of Present Illness: Diagnosis Hematemesis associated with abdominal pain Leukocytosis Fecal imaction Esophagitis Pneumonitis vs pneumonia possibly aspiration Erosion of right ischial tuberosity (POA)- no skin breakdown noted Severe weakness and debility Iron deficiency anemia Hyperglycemic HPI 02/15/24 Jaison Yousif is a 78-year-old male with past medical history of CVA on plavix x 10 years and hypertensive disorder who presents to the ED with chief complaint vomiting coffee-ground emesis, abdominal pain, and hypotension which began early this morning. Son is at the bedside and is a good historian, he reports his fa ther had a similar episode several years ago. He does not believe his father has dementia but is nonverbal and agitated with the nursing staff when they work with him. While in the ED he was given Protonix, normal saline, and Zofran. Initial vitals BP 101 / 46 Supine; Pulse 105; Resp 15; Temp 98(T); Pulse Ox 97% on R/A Laboratory evaluation WBC 14, H&H 9.1/28.1, platelets 382, neutrophils 79.5 ,Sodium 134, potassium 3.4, BUN/creatinine 16/0.49, GFR 105, serum glucose 117, magnesium 1.8, troponin 14.1, BNP 82, albumin 2.4 Chest x-ray reports "Lungs: No evidence of edema or pneumonia. Chronic interstitial thickening. Pleural: No significant pleural effusions or pneumothorax. Cardiac: The heart size is within normal limits. Mediastinum: Within normal limits. Bones: No acute fractures. Other: None. IMPRESSION: No acute cardiopulmonary disease." CT abd pelvis reports " No acute intra-abdominal or pelvic finding. Question fecal impaction. Circumferentially thickened distal esophagus which may reflect esophagitis. Mild nodularity in the lung bases could reflect mild pneumonia or pneumonitis, possibly secondary to aspiration. Erosion of the right ischial tuberosity with soft tissue. This could reflect osteomyelitis." Jaison will be admitted to hospitalist service for further evaluation and treatment of coffee-ground emesis, abdominal pain with hypotension. Dr. Pradhan has been consulted Hospital Course: Jaison Yousif is a pleasant 78-year-old male with a past medical history significant for CVA on plavix x 10 years and hypertensive disorder who was a dmitted to the [facility] on 02/15/24 for coffee-ground emesis, abdominal pain, and hypotension. Jaison Yousif presented to the ED with chief complaint of coffee groung emesis. Dr Quezada was consulted and he performed an EGD to further investigate the GI system. Per Dr. Mccoy note, EGD revealed few erosions with minute amounts of fresh blood. H/H has been stable this admission. Dr. Quezada recommends continuing the protonix twice a day for 2 months then protonix in the AM for one month and then protonix PRN. He also recommends stopping the aspirin and plavix if possible. Discussion with PCP concerning the plavix continuing. Please follow up with Jaison's PCP and with GI. During this admission, no nausea vomiting, tolerated full liquid diet and regular diet yesterday, hemodynamically stable and ready for discharge. Of note: Erosion of the right ischial tuberosity noted on CT abd/pelvis, on examination there is no evidence of skin breakdown to that area. On 02/17/24, Jaison was seen on morning rounds and deemed medically stable for discharge. Jaison was discharged with instructions to schedule follow-up appointments with PCP. Jaison was provided prescriptions for Augmentin. The patient and family members were given the opportunity to ask questions and reported no further questions. Furthermore, all questions were answered to the best of my ability. A copy of this discharge summary will be sent to the above providers to facilitate continuity of care. Today, I personally spent 50 minutes with Jaison, of which greater than 50% of the time was spent in patient education, counseling, and coordination of care as described above. Physical Exam General: Other (Dementia), awake and alert, nonverbal HEENT: Atraumatic, Normocephalic, PERRLA Neck: Supple, PERRLA, MMM Respiratory: Clear to auscultation bilaterally, Symmetrical chest wall movement Cardiovascular: 2+ peripheral pulses, Regular rate rhythm, normal S1-S2 present Capillary refill: <2 Seconds Gastrointestinal: Soft and benign on palpation, normoactive bowel sounds, Nd/NT Musculoskeletal: Contractures Neurological: Other, Dementia Vital Signs/Physical Exam: Temp Pulse Resp BP Pulse Ox 97.4 F 100 H 15 136/63 99 02/17/24 08:00 02/17/24 08:00 02/17/24 08:00 02/17/24 08:00 02/17/24 08:00 Laboratory Data at Discharge: WBC 11.30 thou/uL (4.3-10.9) H 02/17/24 05:52 Hgb 8.8 g/dL (13.6-17.9) L 02/17/24 05:52 Hct 26.5 % (39.6-49.0) L 02/17/24 05:52 Plt Count 390 thou/uL (152-406) 02/17/24 05:52 PT 14.3 SECONDS (9.5-12.5) H 02/15/24 08:50 INR 1.31 02/15/24 08:50 Sodium 132 mEq/L (136-145) L D 02/17/24 05:52 Potassium 2.9 mEq/L (3.5-5.1) L 02/17/24 05:52 BUN 5 mg/dL (7-18) L 02/17/24 05:52 Creatinine 0.24 mg/dL (0.70-1.30) L 02/17/24 05:52 Glucose 107 mg/dL (74-106) H 02/17/24 05:52 Phosphorus 2.5 mg/dL (2.5-4.9) 02/17/24 05:52 Magnesium 1.8 mg/dL (1.6-2.4) 02/17/24 05:52 Total Bilirubin 0.9 mg/dL (0.2-1.0) 02/15/24 08:50 AST 13 U/L (15-37) L 02/15/24 08:50 ALT 13 U/L (16-61) L 02/15/24 08:50 Alkaline Phosphatase 53 U/L (45-117) 02/15/24 08:50 Triglycerides 39 mg/dL (<150) 02/16/24 03:15 Cholesterol 108 mg/dL (<200) 02/16/24 03:15 HDL Cholesterol 35 mg/dL (40-60) L 02/16/24 03:15 Cholesterol/HDL Ratio 3.09 02/16/24 03:15 Lipase 38 U/L (13-75) 02/15/24 08:50 Home Medications: Aspirin [Aspirin EC 81 MG] 1 tab PO DAILY 04/20/12 Clopidogrel Bisulfate [Plavix] 1 tab PO DAILY 04/20/12 Omeprazole Magnesium [Prilosec Otc] 20 mg PO DAILY 04/20/12 Atorvastatin Calcium 10 mg PO BEDTIME 04/30/12 Lisinopril/Hydrochlorothiazide [Lisinopril-Hctz 20-12.5 mg Tab] 1 each PO DAILY 04/30/12 Pantoprazole [Protonix Tab*] 40 mg PO DAILYAC #0 tab 05/02/12 Buspirone HCl 5 mg PO TID 02/15/24 Cholecalciferol (Vitamin D3) [Vitamin D3] 1,250 mcg PO DAILY 02/15/24 Divalproex Sodium [Depakote Sprinkle] 125 mg PO DAILY 02/15/24 PARoxetine HCL [Paxil] 40 mg PO BEDTIME 02/15/24 Amox/K Clav [Augmentin 600 MG/5 ML Susp] 5 ml PO BID #150 ml 02/16/24 New Medications: Amox/K Clav [Augmentin 600 MG/5 ML Susp] 5 ml PO BID #150 ml Physician Discharge Instructions: PROBLEM: Gastrointestinal Bleeding GOAL: Clear understanding of disease process Jaison Yousif presented to the ED with chief complaint of coffee groung emesis. Dr Quezada was consulted and he performed an EGD to further investigate the GI system. Per Dr. Mccoy note, EGD revealed few erosions with minute amounts of fresh blood. H/H has been stable this admission. Dr. Quezada recommends continuing the protonix twice a day for 2 months then protonix in the AM for one month and then protonix PRN. He also recommends stopping the aspirin and plavix if possible. Discussion with PCP concerning the plavix continuing. Please follow up with Jaison's PCP and with GI. INSTRUCTIONS: -DC IV and DC home -Follow-up with PCP in 1 to 2 weeks -Follow-up with GI in 1 to 2 weeks -Please call Dr. Buckley at [phone] if any questions regarding hospital stay -Please call nursing station at [phone] if any nursing or medication questions -Return to the emergency room if symptoms worsen Diet: AHA Activity: Fall precautions DME DME: Date Ordered: Name of Company: [employer] Services Needed: Name of Company: Date or Referral: IMMUNIZATION Influenza Vaccine Indicated: Influenza Vaccine Given: Date Given: Pneumonia Vaccine Indicated: Pneumonia Vaccine Given: Date Given: Diet: AHA Activity: Fall precautions Followup: NONE,NONE [Primary Care Provider] - Jose D Quezada MD [ASSOCIATE-ACTIVE - CAN ADMIT] - Time spent managing pt's care (in minutes): 50
[2024-02-17 13:06] VITALS: BP 144/67
[2024-02-17] MEDS: MAGNESIUM SULFATE 1 gm IVPB 1 GM/100 ML BAG IV ONE (13:29)
--- NOTE | 2024-02-17 14:22 | EKG ---
Test Date: 2024-02-15 Test Time: 07:43:00 Estimation Manager: NEHA MEASUREMENT RESULTS: Intervals: Rate: 107 [place]: 156 QRSD: 80 QT: 350 QTc: 467 [place]: P: 63 [place]: 156 QRS: -52 T: 51 INTERPRETIVE STATEMENTS: Sinus tachycardia Left axis deviation Nonspecific ST and T wave abnormality Abnormal ECG Compared to ECG 12/30/2022 08:54:29 ST (T wave) deviation now present Sinus rhythm no longer present Electronically Signed On 02-17-24 14:15:17 CDT by Piero Howell
[2024-02-17 16:00] LABS: Anion Gap 8.2 mEq/L (5.0-15.0); Potassium 3.2 mEq/L (3.5-5.1)
== END 2024-02-17 15:39 ==
LOC: ER 08:20 → ERHOLD 10:24 → 4TH 12:24
PROVIDERS: ADMIT Hospitalist; ATTEND Hospitalist
PROC: 0DB68ZX Excision of Stomach, Via Natural or Artificial Opening Endoscopic, Diagnostic (ICD-10-PCS; principal; 2024-02-15 18:00)
DX: K92.0 Hematemesis (principal); K29.60 Other gastritis without bleeding; K20.90 Esophagitis, unspecified without bleeding; I10 Essential (primary) hypertension; R10.9 Unspecified abdominal pain; I95.9 Hypotension, unspecified; D72.829 Elevated white blood cell count, unspecified; K56.41 Fecal impaction; D50.9 Iron deficiency anemia, unspecified; R73.9 Hyperglycemia, unspecified; E78.5 Hyperlipidemia, unspecified; E87.6 Hypokalemia; R56.9 Unspecified convulsions; K25.9 Gastric ulcer, unspecified as acute or chronic, without hemorrhage or perforation; K44.9 Diaphragmatic hernia without obstruction or gangrene; K29.50 Unspecified chronic gastritis without bleeding; R53.1 Weakness; R53.81 Other malaise; Z86.73 Personal history of transient ischemic attack (TIA), and cerebral infarction without residual deficits; Z79.82 Long term (current) use of aspirin
CPT/HCPCS: 93005; 85025 ×4; 80048 ×4; 36415 ×3; 86900; 83735 ×3; 86850; 88312; 84100 ×2; 84132; 85610; 85044; 80061; 86901; 80076; 80164; 83605; 88305; 83036; 84484; 82607; 83690; 83540; 83880; 74177; 71045; 51702; 96375; 96374; 99285; 43239; Q9967; J3480; J3475; J2916 ×2; J2704; J2543 ×5; C9113 ×4; J2405; G0378 ×7; J7120; J7050 ×4; J7030; J0692